=== PATIENT | male | born 1985 | race American Indian/Alaskan Native ===

== ENCOUNTER 2022-07-05 11:19 | Emergency (ER) | payer OTHER ==
[2022-07-05] MEDS ORDERED: Ketorolac 30 MG/ML SDV IM ONE (13:47)
[2022-07-05] MEDS ORDERED: Orphenadrine 60 MG/2 ML Inj IM ONE (13:48)
== END 2022-07-05 15:05 | disposition home or self-care (01) ==
LOC: DL.ED 11:19
DX: S39.012A Strain of muscle, fascia and tendon of lower back, initial encounter (principal); X50.0XXA Overexertion from strenuous movement or load, initial encounter
CPT/HCPCS: 72070; 72100; 96372; 99283; J1885; J2360

== ENCOUNTER 2025-04-19 13:43 | Emergency (ER) | payer OTHER ==
[2025-04-19 14:13] LABS: BASOPHILS PERCENT AUTO 0.2 % (0.0-1.0); EOSINOPHILS PERCENT AUTO 1.9 % (1.0-3.0); LYMPHOCYTES PERCENT AUTO 34.0 % (20.5-50.1); MONOCYTES PERCENT AUTO 9.8 % (2-8); NEUTROPHILS PERCENT AUTO 54.1 % (42.2-75.2); PLATELET COUNT,PLT 208 10^3/uL (150-450); RED BLOOD CELL COUNT 4.17 10^6/uL (4.6-6.2); WHITE BLOOD CELL COUNT,WBC 8.1 10^3/uL (5.0-10.0)
[2025-04-19 14:24] LABS: INR 0.9 (0.9-1.2)
[2025-04-19 14:31] LABS: BLOOD UREA NITROGEN,BUN 14.0 mg/dL (7-18); CARBON DIOXIDE,CO2 31.0 mmol/L (21-32); CHLORIDE,CL 105.0 mmol/L (98-107); CREATININE 0.94 mg/dL (0.70-1.30); EST CRCL DRUG DOSING (CG) 92.38 mL/min; GLUCOSE RANDOM 97.0 mg/dL (70-99); POTASSIUM,K 3.7 mmol/L (3.5-5.1); SODIUM,NA 141.0 mmol/L (136-145)
[2025-04-19 14:32] LABS: A/G RATIO 1.2; ALANINE AMINOTRANSFERASE,ALT 28.0 U/L (16-63); ASPARTATE AMNIOTRANSFERASE,AST 14.0 U/L (15-37); BILIRUBIN TOTAL 0.3 mg/dL (0.2-1.0); PROTEIN TOTAL,TP 7.3 g/dL (6.4-8.2)
[2025-04-19 14:33] LABS: ESTIMATED GFR 104.0 mL/min (>=60)
== END 2025-04-19 14:55 | disposition home or self-care (01) ==
LOC: DL.ED 13:43
DX: J06.9 Acute upper respiratory infection, unspecified (principal); R09.1 Pleurisy
CPT/HCPCS: 36415; 71045; 80053; 83690; 84484; 85025; 85610; 93010; 99284; 99285; A9270-GY